=== PATIENT | female | born 1985 | race Two or more races ===

== ENCOUNTER 2019-03-31 07:35 | Emergency (ER) | payer MEDICAID ==
[~2019-03-31] VITALS: Ht 152.4 cm; Wt 54.4 kg
--- NOTE | 2019-03-31 07:43 | NUR ---
PT BIB SELF C/O PELVIC AREA, DYSURIA X 1 MONTH. CONCERN ABOUT STD. PT IS AAOX4, NOT IN RESPIRATORY DISTRESS, V/S STABLE, KEPT RESTED AND COMFORTABLE, WILL CONTINUE TO MONITOR.
--- NOTE | 2019-03-31 07:58 | NUR ---
URINE SPECIMEN COLLECTED AND SENT TO LAB.
[2019-03-31 08:21] LABS: APPEARANCE,URINE Cloudy (CLEAR); BILIRUBIN,URINE Negative (NEGATIVE); BLOOD, URINE Moderate Ery/uL (NEGATIVE); COLOR,URINE Yellow (YELLOW); KETONES,URINE Negative (NEGATIVE); LEUKOCYTE ESTERASE ,URINE Moderate (NEGATIVE); NITRITE, URINE Negative (NEGATIVE); PH,URINE 5.5 (5.0-8.0); PROTEIN,URINE Negative (NEGATIVE); UGLUCOSE Negative (NEGATIVE); UROBILINOGEN,URINE 0.2 EU/dL (0.2)
[2019-03-31 08:30] LABS: BACTERIA,URINE Few /HPF (None Seen); SQUAMOUS EPITHELIAL CELL,UR Few /HPF (None Seen); WBC,URINE TOO NUMEROUS TO COUN /HPF (0-3)
[2019-03-31] MEDS ORDERED: FLUCONAZOLE (100 MG) 100 MG TABLET ONE (08:42)
[2019-03-31] MEDS: FLUCONAZOLE (100 MG) 100 MG TABLET PO ONE (08:45)
--- NOTE | 2019-03-31 09:14 | NUR ---
Patient discharged to home in stable condition. Written and verbal after care instructions given. Patient verbalizes understanding of instruction.
[2019-03-31 09:15] VITALS: BP 110/71
== END 2019-03-31 09:16 | disposition home or self-care (01) ==
LOC: ER 07:35
DX: B37.3 Candidiasis of vulva and vagina (principal); N39.0 Urinary tract infection, site not specified; G43.909 Migraine, unspecified, not intractable, without status migrainosus; Z88.1 Allergy status to other antibiotic agents; Z88.8 Allergy status to other drugs, medicaments and biological substances
CPT/HCPCS: 81000-TC; 84703-TC; 87086-TC; 87186-TC; 87210-TC; 87491; 87591

== ENCOUNTER 2019-06-11 21:17 | Emergency (ER) | payer MEDICAID ==
[~2019-06-11] VITALS: Ht 152.4 cm; Wt 56.7 kg
--- NOTE | 2019-06-11 22:50 | NUR ---
BIBS FOR C/O LOWER ABD PAIN AND HEAVY MENSTRUAL PERIOD. STARTED WITH SPOTTING ON THE .
--- NOTE | 2019-06-11 22:52 | NUR ---
DR GARCIA AT THE BED SIDE
[2019-06-11 23:17] LABS: BASOPHILS # (AUTO) 0.1 /CMM (0.0-0.2); BASOPHILS % (AUTO) 0.7 % (0.0-2.0); EOSINOPHILS % (AUTO) 1.5 % (0.0-6.0); HEMATOCRIT 42 % (33-45); HEMOGLOBIN 13.9 g/dL (11.5-14.8); LYMPHOCYTES # (AUTO) 3.1 /CMM (0.8-4.8); LYMPHOCYTES % (AUTO) 31.9 % (20.0-44.0); MEAN CORPUSCULAR HGB CONC 33 g/dl (31.0-36.0); MEAN CORPUSCULAR VOLUME 85 fL (82-100); MONOCYTES # (AUTO) 0.8 /CMM (0.1-1.30); MONOCYTES % (AUTO) 8.5 % (2.0-12.0); NEUTROPHILS # (AUTO) 5.7 /CMM (1.8-8.9); NEUTROPHILS % (AUTO) 57.4 % (43.0-81.0); PLATELET COUNT (AUTO) 213 /CMM (150-450); RED BLOOD CELL COUNT(AUTO) 4.96 MIL/uL (4.0-5.2); WHITE BLOOD COUNT (AUTO) 9.9 K/uL (4.3-11.0)
[2019-06-11 23:34] LABS: APPEARANCE,URINE SLIGHTLY CLOUDY (CLEAR); COLOR,URINE RED (YELLOW)
[2019-06-11 23:35] LABS: BLOOD, URINE 3+ Ery/uL (NEGATIVE); PROTEIN,URINE 4+ mg/dl (NEGATIVE); UGLUCOSE NEGATIVE (NEGATIVE)
[2019-06-11 23:36] LABS: BILIRUBIN,URINE NEGATIVE (NEGATIVE); KETONES,URINE NEGATIVE (NEGATIVE); UROBILINOGEN,URINE 0.2 EU/dL (0.2)
[2019-06-11 23:37] LABS: LEUKOCYTE ESTERASE ,URINE TRACE (NEGATIVE); NITRITE, URINE NEGATIVE (NEGATIVE)
[2019-06-12] LABS: BACTERIA,URINE None seen /HPF (None Seen); RBC,URINE TOO NUMEROUS TO COUN /HPF (0-2); SQUAMOUS EPITHELIAL CELL,UR Moderate /HPF (None Seen)
[2019-06-12] MEDS ORDERED: ACETAMINOPHEN 325 MG TABLET PO ONE (01:00)
[2019-06-12] MEDS ORDERED: ACETAMINOPHEN 325 MG TABLET ONE (01:02)
[2019-06-12] MEDS ORDERED: ONDANSETRON 4 MG TAB.RAPDIS SL ONE (01:30)
--- NOTE | 2019-06-12 01:37 | NUR ---
AT THE BED SIDE
[2019-06-12] MEDS ORDERED: ONDANSETRON 4 MG TAB.RAPDIS ONE (01:41)
--- NOTE | 2019-06-12 01:45 | NUR ---
Patient discharged to home in stable condition. Written and verbal after care instructions given. Patient verbalizes understanding of instruction.
[2019-06-12 01:57] VITALS: BP 121/79
== END 2019-06-12 01:57 | disposition home or self-care (01) ==
LOC: ER 21:26
DX: O20.9 Hemorrhage in early pregnancy, unspecified (principal); R42 Dizziness and giddiness; R11.0 Nausea; G43.909 Migraine, unspecified, not intractable, without status migrainosus; Z88.1 Allergy status to other antibiotic agents; Z88.8 Allergy status to other drugs, medicaments and biological substances
CPT/HCPCS: 36415; 76805; 81001; 84702; 84703; 85025; 86850; 99284; Q0162; 81000-TC

== ENCOUNTER 2019-06-17 09:03 | Emergency (ER) | payer MEDICAID ==
[~2019-06-17] VITALS: Ht 152.4 cm; Wt 56.7 kg
--- NOTE | 2019-06-17 09:20 | NUR ---
FLU LIKE SX X 3 DAYS. PATIENT A/OX4, BREATHING EVEN AND UNLABORED, NO SOB NOTED, NEEDS ATTENDED. KEPT COMFORTABLE. AT BEDSIDE.
[2019-06-17] MEDS ORDERED: KETOROLAC TROMETHAMINE INJ 30 MG/ML VIAL ONE (09:43)
[2019-06-17] MEDS ORDERED: KETOROLAC TROMETHAMINE INJ 30 MG/ML VIAL IV ONE (10:00)
[2019-06-17] MEDS ORDERED: IV NS 0.9% 1,000 ML BAG IV ONE (10:00)
[2019-06-17 10:30] LABS: BASOPHILS # (AUTO) 0.2 /CMM (0.0-0.2); BASOPHILS % (AUTO) 3.5 % (0.0-2.0); EOSINOPHILS % (AUTO) 1.3 % (0.0-6.0); HEMATOCRIT 44 % (33-45); HEMOGLOBIN 14.4 g/dL (11.5-14.8); LYMPHOCYTES # (AUTO) 0.4 /CMM (0.8-4.8); LYMPHOCYTES % (AUTO) 9.7 % (20.0-44.0); MEAN CORPUSCULAR HGB CONC 33 g/dl (31.0-36.0); MEAN CORPUSCULAR VOLUME 85 fL (82-100); MONOCYTES # (AUTO) 0.4 /CMM (0.1-1.30); MONOCYTES % (AUTO) 9.1 % (2.0-12.0); NEUTROPHILS # (AUTO) 3.3 /CMM (1.8-8.9); NEUTROPHILS % (AUTO) 76.4 % (43.0-81.0); PLATELET COUNT (AUTO) 181 /CMM (150-450); RED BLOOD CELL COUNT(AUTO) 5.14 MIL/uL (4.0-5.2); WHITE BLOOD COUNT (AUTO) 4.3 K/uL (4.3-11.0)
[2019-06-17 11:02] LABS: CALCIUM, SERUM 8.1 mg/dL (8.5-10.1); CREATININE 0.6 mg/dL (0.6-1.3); POTASSIUM 3.4 mmol/L (3.5-5.1)
--- NOTE | 2019-06-17 11:50 | NUR ---
PATIENT POSITIVE FOR INFLUENZA B, DR. GARCIAS MADE AWARE AND SPOKE WITH PATIENT RE: DISCHARGE INSTRUCTIONS.
--- NOTE | 2019-06-17 11:57 | NUR ---
IV removed. Catheter intact and site benign. Pressure and 4x4 applied to site. No bleeding noted. Patient discharged to home in stable condition. Written and verbal after care instructions given. Patient verbalizes understanding of instruction.
[2019-06-17 12:02] VITALS: BP 115/70
== END 2019-06-17 12:04 | disposition home or self-care (01) ==
LOC: ER 09:04
DX: J10.1 Influenza due to other identified influenza virus with other respiratory manifestations (principal); G43.909 Migraine, unspecified, not intractable, without status migrainosus; Z88.1 Allergy status to other antibiotic agents; Z88.8 Allergy status to other drugs, medicaments and biological substances
CPT/HCPCS: 36415; 71045; 80048; 84702; 85025; 87804 ×2; 93005; 96374; 99284; J1885; J7030